=== PATIENT | female | born 1985 | race Caucasian/White ===

== ENCOUNTER 2018-03-16 17:52 | Emergency (ER) | payer MEDICAID, OTHER ==
[2018-03-16] MEDS ORDERED: IBUPROFEN 600 MG TAB PO ONE (18:16)
[2018-03-16 18:17] VITALS: BP 133/81
[2018-03-16] MEDS ORDERED: ACETAMINOPHEN 500 MG TAB PO ONE (18:39)
[2018-03-16] MEDS ORDERED: traMADol 50 MG TAB PO ONE (18:39)
--- NOTE | 2018-03-16 18:42 | EDPHY ---
H & P Time Seen by Provider: 03/16/18 18:11 HPI/ROS: This patient complains of right foot pain to the dorsal midfoot after 2 injuries within 24 hr. Yesterday she was running in her yd after her child in slipped on a corner while wearing flip-flops with moderate pain to the dorsum of the foot. She did not fall from that episode but when she awakened this morning the pain had increased to moderate severity steady ache and made it difficult to bear weight. She rested her foot today with ice on it and elevation and then this evening shortly prior to arrival here her 2-year-old inadvertently jumped on her foot. She heard up pop sound well with that injury and reports that the pain then became severe with associated swelling and mild erythema. She is now unable to bear weight on the affected foot. Her neighbor brought her in by private vehicle for evaluation. ROS: Neuro: No numbness or tingling the affected extremity Musculoskeletal: No other injuries. No associated ankle pain. Integumentary: No lacerations abrasions 5 point ROS is otherwise negative. Past Medical/Surgical History: Otherwise healthy Social History: Social drinker -1 to 3 times a week 1-3 drinks. No drug use Smoking Status: Current every day smoker Physical Exam: Physical Exam Vital signs are normal. General: No acute distress Eyes: Pupils equal and react to light. Extraocular motions are intact. Lungs: No respiratory distress. Cardiac: Brisk capillary refill is intact throughout. Pulses are 2+ and symmetric in the affected extremity. Skin: No rash or pallor. Extremities: Atraumatic normal except for right foot Right foot: Patient has mild swelling to the dorsal midfoot with associated tenderness and mild erythema. There is no 5th metatarsal swelling or tenderness , no ankle swelling or tenderness. Neuro: Alert with no sensorimotor deficits in the affected extremity. Initial differential diagnosis: Traumatic hematoma, sprain, fracture Constitutional: Initial Vital Signs Temperature (C) 36.9 C 03/16/18 18:13 Heart Rate 106 H 03/16/18 18:13 Respiratory Rate 16 03/16/18 18:13 Blood Pressure 133/81 H 03/16/18 18:13 O2 Sat (%) 96 03/16/18 18:13 O2 Delivery Mode Room Air Allergies/Adverse Reactions: No Known Allergies Allergy (Verified 03/16/18 18:09) Home Medications: Medication Instructions Recorded Prozac 20 MG (*) 03/16/18 traMADol [Ultram 50 mg (*)] 50 - 100 mg PO Q4 PRN #20 tab 03/16/18 MDM/Departure - MDM Diagnostics: Three-view foot x-ray: Negative for fracture by my interpretation Imaging Results: Imaging Impressions Foot X-Ray 03/16/18 18:17 Impression: Negative right foot radiographs. Three-view foot x-ray: Normal by my interpretation Imaging: I viewed and interpreted images myself Medications Given: Discontinued Medications Acetaminophen (Tylenol) 1,000 mg PO EDNOW ONE Stop: 03/16/18 18:40 Last Admin: 03/16/18 18:45 Dose: 1,000 mg Ibuprofen (Motrin) 600 mg PO EDNOW ONE Stop: 03/16/18 18:17 Last Admin: 03/16/18 18:22 Dose: 600 mg Tramadol HCl (Ultram) 50 mg PO EDNOW ONE Stop: 03/16/18 18:40 Last Admin: 03/16/18 18:45 Dose: 50 mg ED Course/Re-evaluation: Ibuprofen, Tylenol and tramadol p.o. With partial relief. She is also given ice. She is placed in a postop shoe by our tech-neurovascular intact post splint application. She is also given crutches. I counseled regarding foot sprain. Patient will follow up with Podiatry in 7-10 days for a recheck. Discussion: Findings consistent with foot sprain without evidence of fracture or other complicating factors - Depart Disposition: Home, Routine, Self-Care Clinical Impression: Foot sprain Qualifiers: Encounter type: initial encounter Laterality: right Qualified Code(s): S93.601A - Unspecified sprain of right foot, initial encounter Condition: Good Instructions: Foot Sprain (ED) Additional Instructions: Diagnosis: Foot sprain Plan: Ice 20 min at a time 3 times a day until symptoms improve Ibuprofen in addition-406 100 mg per 6 hr as needed Tylenol in [id number] mg per 4 hr not to exceed 3000 mg in 24 hr Tramadol in addition if needed for pain that prevents sleep. No driving, alcohol or come tramadol Use crutches until it is no longer painful to bear weight Postop shoe whenever your up and about Call Dr. Topete-extension service specialist or extension service specialist of your choice to arrange for a follow-up appointment in 7-10 days. Return emergency department for any significant worsening despite the treatment plan. Prescriptions: traMADol [Ultram 50 mg (*)] 50 - 100 mg PO Q4 PRN #20 tab PRN Reason: breakthrough pain Referrals: NONE *PRIMARY CARE P,. [Primary Care Provider] - As per Instructions Mirela Topete DPM [Doctor of Podiatric Medicine] - As per Instructions
== END 2018-03-16 18:45 | disposition home or self-care (01) ==
LOC: CED 17:52
DX: S93.601A Unspecified sprain of right foot, initial encounter (principal); F17.200 Nicotine dependence, unspecified, uncomplicated; W18.40XA Slipping, tripping and stumbling without falling, unspecified, initial encounter; Y92.007 Garden or yard of unspecified non-institutional (private) residence as the place of occurrence of the external cause; Y99.8 Other external cause status; Y93.02 Activity, running
CPT/HCPCS: 73630-PO; L4386